=== PATIENT | female | born 1990 ===

== ENCOUNTER 2019-11-15 05:31 | Inpatient (IN) | payer BC ==
[2019-11-15] MEDS ORDERED: Citric Acid/Sodium Citrate Solution 30 ML Cup PO ONE (05:36)
[2019-11-15] MEDS ORDERED: Sodium Chloride 0.9% 10 ML SDV IV PRN (05:36)
[2019-11-15] MEDS ORDERED: Sodium Chloride 0.9% 10 ML Syringe FLUSH PRN (05:36)
[2019-11-15] MEDS ORDERED: Sodium Chloride 0.9% 2.5 ML Syringe FLUSH PRN (05:36)
[2019-11-15] MEDS ORDERED: Oxytocin/0.9 % Sodium Chloride 30 UNIT/500 ML BAG IV SCH (05:45)
[2019-11-15] MEDS: Lactated Ringers 1,000 ML IV SCH ×2 (05:49→07:32)
[2019-11-15] MEDS ORDERED: Sodium Chloride 0.9% 20 ML ONE (07:11)
[2019-11-15] MEDS ORDERED: ceFAZolin 1 GM Vial ONE (07:11)
[2019-11-15] MEDS ORDERED: Ketorolac 30 MG/ML SDV ONE (07:21)
[2019-11-15] MEDS ORDERED: Oxytocin 10 Units/1 ML SDV ONE (07:21)
[2019-11-15] MEDS ORDERED: Phenylephrine 1% 10 MG/ML SDV ONE (07:21)
[2019-11-15] MEDS ORDERED: Morphine PF 10 MG/10 ML SDV ONE (07:22)
[2019-11-15] MEDS ORDERED: Citric Acid/Sodium Citrate Solution 30 ML Cup ONE (07:30)
--- NOTE | 2019-11-15 07:36 | PCM.PREANE ---
Preanesthetic Assessment - Anesthesia/Transfusion/Family Hx Anesthesia History: Prior Anesthesia Without Reaction Family History of Anesthesia Reaction: No Transfusion History: Prior Transfusion Without Reaction - Physical Assessment NPO Status Date: 11/15/19 NPO Status Time: 00:05 Height: 1.55 m Weight: 69.4 kg ASA Class: 1 - Lab Values: Laboratory Last Values WBC 9.67 K/uL (4.0-11.0) 11/14/19 10:10 RBC 3.80 M/uL (4.30-5.90) L 11/14/19 10:10 Hgb 12.2 g/dL (12.0-16.0) 11/14/19 10:10 Hct 37.2 % (36.0-46.0) 11/14/19 10:10 MCV 97.9 fL (80.0-98.0) 11/14/19 10:10 MCH 32.1 pg (27.0-32.0) H 11/14/19 10:10 MCHC 32.8 g/dL (31.0-37.0) 11/14/19 10:10 RDW Std Deviation 48.6 fl (28.0-62.0) 11/14/19 10:10 RDW Coeff of Maggy 14 % (11.0-15.0) 11/14/19 10:10 Plt Count 220 K/uL (150-400) 11/14/19 10:10 MPV 9.80 fL (7.40-12.00) 11/14/19 10:10 Nucleated RBC % 0.0 /100WBC 11/14/19 10:10 Nucleated RBCs # 0 K/uL 11/14/19 10:10 SARS Virus RNA (PCR) NEGATIVE (NEGATIVE) 11/14/19 09:58 Blood Type A POSITIVE 11/14/19 10:10 Antibody Screen NEGATIVE 11/14/19 10:10 - Allergies Allergies/Adverse Reactions: Allergies Allergy/AdvReac Type Severity Reaction Status Date / Time latex Allergy Itching Verified 11/10/19 08:45 shrimp Allergy Hives Verified 11/10/19 08:45 - Acknowledgements Anesthesia Type Planned: Spinal Pt an Appropriate Candidate for the Planned Anesthesia: Yes Alternatives and Risks of Anesthesia Discussed w Pt/Guardian: Yes Pt/Guardian Understands and Agrees with Anesthesia Plan: Yes PreAnesthesia Questionnaire HEENT History: Reports: None Cardiovascular History: Reports: None Respiratory History: Reports: Other (See Below) Other Respiratory History: childhood asthma Gastrointestinal History: Reports: Other (See Below) Other Gastrointestinal History: heartburn during Genitourinary History: Reports: Renal Calculus SHIRT TURNER History: Reports: Musculoskeletal History: Reports: Fracture Other Musculoskeletal History: hx fx collarbone Neurological History: Reports: Migraines Psychiatric History: Reports: Anxiety, Depression Endocrine/Metabolic History: Reports: None Hematologic History: Reports: Blood Transfusion(s) Immunologic History: Reports: None Oncologic (Cancer) History: Reports: None Dermatologic History: Reports: None - Infectious Disease History Infectious Disease History: Reports: None - Past Surgical History Head Surgeries/Procedures: Reports: None HEENT Surgical History: Reports: None Cardiovascular Surgical History: Reports: None Respiratory Surgical History: Reports: None GI Surgical History: Reports: None Female Surgical History: Reports: Section Endocrine Surgical History: Reports: None Neurological Surgical History: Reports: None Musculoskeletal Surgical History: Reports: None Oncologic Surgical History: Reports: None Dermatological Surgical History: Reports: None - SUBSTANCE USE Smoking Status *Q: Never Smoker Second Hand Smoke Exposure: No Recreational Drug Use History: No - HOME MEDS Home Medications: Home Meds Acetaminophen [Tylenol Extra Strength] 2 tab PO ASDIRECTED PRN 11/10/19 [History ] Calcium Carbonate [Tums] 1 tab.chew CHEW ASDIRECTED PRN 11/10/19 [History] Docusate Sodium [Stool Softener] 200 mg PO DAILY 11/10/19 [History] Ferrous Sulfate [Iron] 65 mg PO DAILY 11/10/19 [History] Pnv No.95/Ferrous Fum/Folic AC [ Vitamin Tablet] 1 tab PO DAILY [History] - CURRENT (IN HOUSE) MEDS Current Meds: Current Medications Cefazolin Sodium/Dextrose 1 gm (/ Premix) 50 mls @ 100 mls/hr IV ONETIME ONE Stop: 11/15/19 08:14 Lactated Ringer's (Ringers, Lactated) 1,000 mls @ 500 mls/hr IV BOLUS OPAL Last Admin: 11/15/19 07:32 Dose: 500 mls/hr Oxytocin/Sodium Chloride (Oxytocin 30 Unit/500 Ml-Ns) 30 unit in 500 mls @ 250 mls/hr IV TITRATE OPAL Sodium Chloride (Saline Flush) 10 ml FLUSH ASDIRECTED PRN PRN Reason: Keep Vein Open Sodium Chloride (Saline Flush) 2.5 ml FLUSH ASDIRECTED PRN PRN Reason: Keep Vein Open Sodium Chloride (Normal Saline) 10 ml IV ASDIRECTED PRN PRN Reason: IV Use Discontinued Medications Cefazolin Sodium (Ancef) Confirm Administered Dose 2 gm .ROUTE .STK-MED ONE Stop: 11/15/19 07:12 Citric Acid/Sodium Citrate (Bicitra Solution) 30 ml PO ONETIME ONE Stop: 11/15/19 05:37 Citric Acid/Sodium Citrate (Bicitra Solution) Confirm Administered Dose 30 ml .ROUTE .STK-MED ONE Stop: 11/15/19 07:31 Last Admin: 11/15/19 07:33 Dose: 30 ml Sodium Chloride (Normal Saline) Confirm Administered Dose 20 mls @ as directed .ROUTE .STK-MED ONE Stop: 11/15/19 07:12 Ketorolac Tromethamine (Toradol) Confirm Administered Dose 30 mg .ROUTE .STK- MED ONE Stop: 11/15/19 07:22 Morphine Sulfate (Duramorph Pf) Confirm Administered Dose 10 mg .ROUTE .STK-MED ONE Stop: 11/15/19 07:23 Oxytocin (Pitocin) Confirm Administered Dose 10 unit .ROUTE .STK-MED ONE Stop: 11/15/19 07:22 Phenylephrine HCl (Duc-Synephrine) Confirm Administered Dose 10 mg .ROUTE .STK- MED ONE Stop: 11/15/19 07:22
[2019-11-15] MEDS ORDERED: ceFAZolin 1 GM in Premix Bag 1 BAG IV ONE (07:45)
[2019-11-15] MEDS ORDERED: Nalbuphine 10 MG/1 ML Vial IVPUSH PRN (08:12)
[2019-11-15] MEDS ORDERED: Acetaminophen/oxyCODONE 325-5 MG Tab PO PRN ×2 (08:12→09:01)
[2019-11-15] MEDS ORDERED: fentaNYL 100 MCG/2 ML SDV IVPUSH PRN (08:12)
[2019-11-15] MEDS ORDERED: Octyl 2-Cyanoacrylate 1 Tube ONE (08:30)
[2019-11-15] MEDS ORDERED: Ondansetron 4 MG/2 ML SDV IVPUSH PRN (09:01)
[2019-11-15] MEDS ORDERED: Bisacodyl 10 MG Supp RECTAL PRN (09:01)
[2019-11-15] MEDS ORDERED: Ibuprofen 800 MG Tab PO PRN (09:01)
[2019-11-15] MEDS ORDERED: Methylergonovine 0.2 MG/1 ML Amp IM PRN (09:01)
[2019-11-15] MEDS ORDERED: Tranexamic Acid 1,000 MG in Sodium Chloride 0.9% 100 ML IV PRN (09:01)
[2019-11-15] MEDS ORDERED: Lanolin 100% Cream 7 GM Tube TOP PRN (09:01)
[2019-11-15] MEDS ORDERED: Misoprostol 200 MCG Tab RECTAL PRN (09:01)
[2019-11-15] MEDS ORDERED: Oxytocin 10 Units/1 ML SDV IM PRN (09:01)
[2019-11-15] MEDS ORDERED: diphenhydrAMINE 50 MG/ML SDV IVPUSH PRN (09:01)
--- NOTE | 2019-11-15 09:01 | PCM.OPNOTE ---
- General Post-Op/Procedure Note Date of Surgery/Procedure: 11/15/19 Operative Procedure(s): repeat low transverse Findings: Liveborn female 8/9 weight 3360 grams, normal pelvis, very thin lower uterine segment. Pre Op Diagnosis: 39 weeks, previous , declines VTOL Post-Op Diagnosis: Same Anesthesia Technique: Spinal Primary Surgeon: Starr Bateman Secondary Surgeon: Lois Kim Anesthesia Provider: Rober Jacob Senior Industrial Engineer: Man Mckeon Pathology: none Fluid Replacement, Intraop: 600 EBL in mLs: 300 Complications: None Known Condition: Good
[2019-11-15] MEDS ORDERED: Oxytocin/Lactated Ringers 30 UNIT/500 ML BAG IV SCH (09:15)
[2019-11-15] MEDS ORDERED: Lactated Ringers 1,000 ML IV SCH (09:15)
--- NOTE | 2019-11-15 09:59 | PCM.POSTAN ---
POST ANESTHESIA ASSESSMENT - MENTAL STATUS Mental Status: Alert - RESPIRATORY Respiratory Status: Respiratory Rate WNL - CARDIOVASCULAR CV Status: Pulse Rate WNL - GASTROINTESTINAL GI Status: No Symptoms - POST OP HYDRATION Hydration Status: Adequate & Stable
[2019-11-15] MEDS: Acetaminophen/oxyCODONE 325-5 MG Tab PO PRN ×2 (16:21→20:35)
--- NOTE | 2019-11-15 16:21 | OR ---
SURGEON: Starr Bateman M.D. DATE OF PROCEDURE: 11/15/2019 PREOPERATIVE DIAGNOSES: A 39-week intrauterine , prior section, declines vaginal trial of labor. POSTOPERATIVE DIAGNOSES: A 39-week intrauterine , prior section, declines vaginal trial of labor. PROCEDURE: Repeat low-transverse section. PRIMARY SURGEON: Starr Bateman M.D. CORPORATE STRATEGIST: Priscila Kim, certified 1st assist. ANESTHESIA: Spinal. ESTIMATED BLOOD LOSS: 300 mL. FLUIDS: 1500 mL crystalloid. URINE OUTPUT: 200 mL. FINDINGS: Liveborn female, score of 8 and 9, weighing 3360 g. Normal-appearing uterus, tubes, and ovaries. The lower uterine segment was noted to be markedly thinned. COMPLICATIONS: None known. DISPOSITION: Stable to Recovery. BRIEF HISTORY: This is a 29-year-old female, G2, P1. She presents at 39 weeks' gestation for repeat delivery, having had uncomplicated care. She was informed of option of a vaginal trial of labor versus delivery, and after discussion of risks and benefits, she desires to proceed with a repeat low- transverse section with risks discussed including bleeding; infection; injury to bowel, bladder, blood vessels, ureters, or other organs; risk of thromboembolic event; and risk of anesthesia. Understanding all these risks, she does desire to proceed. DESCRIPTION OF PROCEDURE: With the patient in left tilt position, under adequate spinal analgesia, the abdomen was prepped with chlorhexidine and draped in usual fashion for abdominal surgery. SCDs were in place. Pennington catheter had been placed. An appropriate time-out was held. She received 2 g of Ancef IV. After documentation of adequate analgesia, a transverse curvilinear incision was made removing the prior cicatrix over the lower abdomen 2 cm cephalad from the pubic symphysis. This incision was carried through the subcutaneous tissue to the fascia which was scored transversely in the midline. The fascial incision was extended using Kim scissors and elevated from the underlying rectus muscle using sharp and blunt dissection. The rectus muscles were bluntly in the midline. A finger was used to enter the peritoneal cavity and this incision was extended with blunt dissection. The Dylon O retractor was placed. The visceroperitoneum of the lower uterine segment was incised to develop an adequate bladder flap. A transverse curvilinear incision was made over the lower uterine segment using a scalpel with the lower uterine segment noting to be just 2 to 3 mm in thickness. This incision was extended with cephalad- caudad traction. The head was delivered via the uterine incision. The infant was bulb suctioned by nose and mouth and the was delivered. The cord was doubly clamped and cut after it ceased to pulsate and the infant was handed to the nurse in attendance at delivery. The infant is a liveborn female, score of 8 and 9, weighing 3360 g. Cord blood was collected for cord ABGs as well as routine cord blood sampling. Pitocin was initiated after delivery of the to assist with uterine contractions. The placenta was removed by manual extraction. The cervix was opened with a ring forceps. The uterus was cleaned with a dry laparotomy tape. The uterine incision was closed with a running lock suture of 0 Polysorb. It was hemostatic. Therefore, the tubes and ovaries were inspected and were normal. The pericolic gutters were cleaned with a wet laparotomy tape. The uterine incision was again inspected. It was completely hemostatic. Therefore, the rectus muscle and peritoneum were loosely approximated in the midline using a running mattress suture of 0 Polysorb. The posterior aspect of the fascia was inspected, it was hemostatic. The fascial incision was closed with a running suture of 0 Polysorb. The subcutaneous tissue was copiously irrigated. Any areas of bleeding that were noted were cauterized. The deep subcutaneous tissue was reapproximated with a 3-0 plain and the skin was closed with a subcuticular suture of 3-0 Monocryl followed by Dermabond. Final sponge, needle, and instrument counts were reported as correct. There were no complications. Mother and baby are in Recovery in good condition. MYRA / LATIA /[id number]
[2019-11-15] MEDS: Docusate Sodium 100 MG Cap PO SCH (22:07)
[2019-11-15] MEDS ORDERED: Simethicone 80 MG Tab.Chew PO PRN (23:55)
[2019-11-16] MEDS: Acetaminophen/oxyCODONE 325-5 MG Tab PO PRN ×4 (00:42→12:27)
--- NOTE | 2019-11-16 07:22 | PCM48HPAN ---
Post Anesthesia Note - EVALUATION WITHIN 48HRS OF ANESTHETIC Vital Signs in Normal Range: Yes Patient Participated in Evaluation: Yes Respiratory Function Stable: Yes Airway Patent: Yes Cardiovascular Function Stable: Yes Hydration Status Stable: Yes Pain Control Satisfactory: Yes Nausea and Vomiting Control Satisfactory: Yes Mental Status Recovered: Yes Vital Signs: Last Vital Signs Temp 36.6 C 11/16/19 04:00 Pulse 89 11/16/19 06:00 Resp 16 11/16/19 06:00 BP 115/70 11/16/19 04:00 Pulse Ox 98 11/16/19 06:00
--- NOTE | 2019-11-16 08:58 | PCM.PNPP ---
- General Info Date of Service: 11/16/19 Functional Status: Reports: Pain Controlled (pain not well controlled. No Toradol due to history of hematoma, Percocet works if used frequently.), Tolerating Diet, Ambulating, Urinating, Other (requests discharge to home. ) - Review of Systems General: Reports: No Symptoms HEENT: Reports: No Symptoms Pulmonary: Reports: No Symptoms Cardiovascular: Reports: No Symptoms Gastrointestinal: Reports: No Symptoms Genitourinary: Reports: No Symptoms Musculoskeletal: Reports: No Symptoms Skin: Reports: No Symptoms Neurological: Reports: No Symptoms Psychiatric: Reports: No Symptoms - General Info Date of Service: 11/16/19 - Patient Data Vital Signs - Most Recent: Last Vital Signs Temp 36.6 C 11/16/19 04:00 Pulse 89 11/16/19 06:00 Resp 16 11/16/19 06:00 BP 115/70 11/16/19 04:00 Pulse Ox 98 11/16/19 06:00 Weight - Most Recent: 69.4 kg I&O - Last 24 Hours: Intake & Output 11/15/19 11/16/19 11/16/19 22:59 06:59 14:59 Intake Total 850 Output Total 2550 2375 Balance -1700 -2375 Lab Results - Last 24 Hours: Laboratory Results - last 24 hr 11/15/19 11/15/19 11/16/19 Range/Units 08:12 08:12 05:42 Hgb 11.7 L (12.0-16.0) g/dL Hct 35.9 L (36.0-46.0) % Cord ABG pH 7.376 (7.18-7.38) Cord ABG Base Excess -3 (-10--2) Cord VBG pH 7.311 (7.25-7.45) Cord VBG Base Excess -2 (-10--2) Med Orders - Current: Current Medications Bisacodyl (Dulcolax) 10 mg RECTAL ONETIME PRN PRN Reason: Constipation Diphenhydramine HCl (Benadryl) 25 mg IVPUSH Q6H PRN PRN Reason: Itching or Nausea Docusate Sodium (Colace) 100 mg PO BID OPAL Last Admin: 11/15/19 22:07 Dose: 100 mg Emollient Ointment (Lansinoh Hpa) 0 gm TOP ASDIRECTED PRN PRN Reason: Sore Nipples Lactated Ringer's (Ringers, Lactated) 1,000 mls @ 500 mls/hr IV BOLUS [facility] Last Admin: 11/15/19 07:32 Dose: 500 mls/hr Oxytocin/Sodium Chloride (Oxytocin 30 Unit/500 Ml-Ns) 30 unit in 500 mls @ 250 mls/hr IV TITRATE OPAL Lactated Ringer's (Ringers, Lactated) 1,000 mls @ 125 mls/hr IV ASDIRECTED [facility] Last Admin: 11/15/19 10:50 Dose: 125 mls/hr Oxytocin/Lactated Ringer's (Pitocin In Lr 30 Units/500 Ml) 30 unit in 500 mls @ 999 mls/hr IV TITRATE OPAL; Protocol Tranexamic Acid 1,000 mg/ (Sodium Chloride) 110 mls @ 660 mls/hr IV ONETIME PRN PRN Reason: Bleeding Ketorolac Tromethamine (Toradol) 10 mg PO Q6H [facility] Stop: 11/21/19 10:01 Methylergonovine Maleate (Methergine) 0.2 mg IM ONETIME PRN PRN Reason: Excessive Vaginal Bleeding Misoprostol (Cytotec) 1,000 mcg RECTAL ONETIME PRN PRN Reason: excessive bleeding Ondansetron HCl (Zofran) 4 mg IVPUSH Q4H PRN PRN Reason: Nausea/Vomiting Oxycodone/Acetaminophen (Percocet 325-5 Mg) 1 tab PO ONETIME PRN PRN Reason: Pain (moderate 4-6) Last Admin: 11/15/19 12:24 Dose: 1 tab Oxycodone/Acetaminophen (Percocet 325-5 Mg) 1 tab PO Q4H PRN PRN Reason: Pain (moderate 4-6) Last Admin: 11/15/19 10:01 Dose: 1 tab Oxycodone/Acetaminophen (Percocet 325-5 Mg) 2 tab PO Q4H PRN PRN Reason: Pain (moderate 4-6) Last Admin: 11/16/19 08:09 Dose: 2 tab Oxytocin (Pitocin) 10 unit IM ASDIRECTED PRN PRN Reason: Excessive Vaginal Bleeding Simethicone (Simethicone) 80 mg PO Q6H PRN PRN Reason: Gas Last Admin: 11/16/19 00:42 Dose: 80 mg Sodium Chloride (Saline Flush) 10 ml FLUSH ASDIRECTED PRN PRN Reason: Keep Vein Open Sodium Chloride (Saline Flush) 2.5 ml FLUSH ASDIRECTED PRN PRN Reason: Keep Vein Open Sodium Chloride (Normal Saline) 10 ml IV ASDIRECTED PRN PRN Reason: IV Use Discontinued Medications Cefazolin Sodium (Ancef) Confirm Administered Dose 2 gm .ROUTE .STK-MED ONE Stop: 11/15/19 07:12 Citric Acid/Sodium Citrate (Bicitra Solution) 30 ml PO ONETIME ONE Stop: 11/15/19 05:37 Citric Acid/Sodium Citrate (Bicitra Solution) Confirm Administered Dose 30 ml .ROUTE .STK-MED ONE Stop: 11/15/19 07:31 Last Admin: 11/15/19 07:33 Dose: 30 ml Fentanyl (Sublimaze) 50 mcg IVPUSH Q5M PRN PRN Reason: Pain (severe 7-10) Stop: 11/16/19 08:12 Cefazolin Sodium/Dextrose 1 gm (/ Premix) 50 mls @ 100 mls/hr IV ONETIME ONE Stop: 11/15/19 08:14 Sodium Chloride (Normal Saline) Confirm Administered Dose 20 mls @ as directed .ROUTE .STK-MED ONE Stop: 11/15/19 07:12 Ibuprofen (Motrin) 800 mg PO Q8H PRN PRN Reason: mild pain or fever Ketorolac Tromethamine (Toradol) Confirm Administered Dose 30 mg .ROUTE .STK- MED ONE Stop: 11/15/19 07:22 Morphine Sulfate (Duramorph Pf) Confirm Administered Dose 10 mg .ROUTE .STK-MED ONE Stop: 11/15/19 07:23 Nalbuphine HCl (Nubain) 2.5 mg IVPUSH Q3H PRN PRN Reason: Pruritis Stop: 11/16/19 08:12 Octyl Cyanoacrylate (Dermabond Advance) Confirm Administered Dose 1 applic .ROUTE .STK-MED ONE Stop: 11/15/19 08:31 Oxytocin (Pitocin) Confirm Administered Dose 10 unit .ROUTE .STK-MED ONE Stop: 11/15/19 07:22 Phenylephrine HCl (Duc-Synephrine) Confirm Administered Dose 10 mg .ROUTE .STK- MED ONE Stop: 11/15/19 07:22 - Interaction Disposition, : [place] in Room with Family Infant Interaction: Holding Infant Infant Feeding: Breastfed Infant; Nursed Well Support Person: - Recovery Exam Fundal Tone: Firm Fundal Level: 1 Fingerbreadths Below Umbilicus Fundal Placement: Midline Lochia Amount: Small Lochia Color: Rubra/Red Perineum Description: Intact, Minimal Bruising/Swelling Bladder Status: Nonpalpable Urinary Elimination: Indwelling Catheter - Exam General: Alert, Oriented Neck: Supple Lungs: Normal Respiratory Effort GI/Abdominal Exam: Soft, Non-Tender, No Distention Extremities: Non-Tender, No Pedal Edema Skin: Warm, Dry, Intact Wound/Incisions: Healing Well Neurological: No New Focal Deficit Psy/Mental Status: Alert, Normal Affect, Normal Mood - Problem List & Annotations (1) delivery delivered SNOMED Code(s): 614219605 Code(s): O82 - ENCOUNTER FOR DELIVERY WITHOUT INDICATION Status: Acute Current Visit: Yes - Problem List Review Problem List Initiated/Reviewed/Updated: Yes - My Orders Last 24 Hours: My Active Orders 11/15/19 09:01 Ambulate [RC] PER UNIT ROUTINE Communication Order [RC] PER UNIT ROUTINE Communication Order [RC] PER UNIT ROUTINE Communication Order [RC] Per Unit Routine May Shower [RC] ASDIRECTED RT Incentive Spirometry [RC] Q2HWA Vital Signs [RC] PER UNIT ROUTINE Acetaminophen/oxyCODONE [Percocet 325-5 MG] 1 tab PO Q4H PRN Acetaminophen/oxyCODONE [Percocet 325-5 MG] 2 tab PO Q4H PRN Lanolin [Lansinoh HPA] See Dose Instructions TOP ASDIRECTED PRN Methylergonovine [Methergine] 0.2 mg IM ONETIME PRN Ondansetron [Zofran] 4 mg IVPUSH Q4H PRN Oxytocin [Pitocin] 10 unit IM ASDIRECTED PRN Tranexamic Acid [Cyklokapron] 1,000 mg Sodium Chloride 0.9% [Normal Saline] 100 ml IV ONETIME bisacodyL [Dulcolax] 10 mg RECTAL ONETIME PRN diphenhydrAMINE [Benadryl] 25 mg IVPUSH Q6H PRN miSOPROStoL [Cytotec] 1,000 mcg RECTAL ONETIME PRN Abdominal Binder [OM.PC] Routine Assess Lochia [WOMSER] Per Unit Routine Assess Uterine Involution [WOMSER] Per Unit Routine Breast Pump [WOMSER] Per Unit Routine Peripheral IV Discontinue [OM.PC] Routine Sequential Compression Device [OM.PC] Per Unit Routine 11/15/19 09:02 Antiembolic Devices [RC] PER UNIT ROUTINE Notify Provider Intake and Out [RC] ASDIRECTED Notify Provider Vital Signs [RC] ASDIRECTED 11/15/19 09:15 Lactated Ringers [Ringers, Lactated] 1,000 ml IV ASDIRECTED Oxytocin/Lactated Ringers [Pitocin in LR 30 Units/500 ML] 30 unit in 500 ml IV TITRATE 11/15/19 21:00 Docusate Sodium [Colace] 100 mg PO BID 11/15/19 Lunch Regular Diet [DIET] 11/16/19 08:45 Ketorolac [Toradol] 10 mg PO Q6H 11/16/19 08:54 Ready for Discharge [RC] PER UNIT ROUTINE - Assessment Assessment:: POD#1 after repeat low transverse . Stable, minimal lochia. Would like oral ketorolac since she is greater than 24 hours from surgery and wound appears normal. - Plan Plan:: Dismiss to home, discharge instructions reviewed.
[2019-11-16] MEDS ORDERED: Ketorolac 10 MG Tab PO SCH (10:00)
[2019-11-16] MEDS: Docusate Sodium 100 MG Cap PO SCH (10:05)
== END 2019-11-16 12:50 | disposition home or self-care (01) | DRG 540 ==
LOC: MW.OB 05:31
PROVIDERS: ADMIT Obstetrics & Gynecology; ATTEND Obstetrics & Gynecology
PROC: 10D00Z1 Extraction of Products of Conception, Low, Open Approach (ICD-10-PCS; principal; 2019-11-15)
DX: O34.211 Maternal care for low transverse scar from previous cesarean delivery (principal); Z37.0 Single live birth; Z3A.39 39 weeks gestation of pregnancy; Z20.828 Contact with and (suspected) exposure to other viral communicable diseases
CPT/HCPCS: 01961; 36415; 51702; 59025; 82803; 85014; 85018; 85027; 86592; 86593; 86850; 86900; 86901; A9270-GY; J0690; J1885; J2270; J2370; J2590; J7120; U0002